=== PATIENT | female | born 1995 | race Caucasian/White ===

== ENCOUNTER → 2025-05-08 | Day surgery (SDC) | payer MEDICAID ==
[~2025-05-08] VITALS: Ht 154.9 cm; Wt 90.3 kg
[~2025-05-08] MED LIST: ACETAMINOPHEN 1000MG/100ML 100 ML IV ONE; BUPIVACAINE HCL/PF 0.5% (5MG/ML) 10ML ONE; DEXAMETHASONE 4MG/ML 1ML VIAL ONE; EPHEDRINE SULFATE 50MG/ML VIAL ONE; FAMOTIDINE 20MG/2ML VIAL IV ONE; FENTANYL CITRATE/PF 50MCG/ML 2ML VIAL IV PRN; FENTANYL CITRATE/PF 50MCG/ML 2ML VIAL ONE; HYDRALAZINE 20MG/ML VIAL IV PRN; HYDROMORPHONE HCL/PF 1MG/ML INJ IV PRN; HYDROMORPHONE HCL/PF 1MG/ML INJ ONE; LABETALOL 5MG/ML 4ML INJ IV PRN; LACTATED RINGERS 1,000 ML IV SCH; LEVO25TA7 PO; LIDOCAINE HCL 1% 20ML VIAL ONE; ONDANSETRON HCL 4MG/2ML INJ ONE; PHENYLEPHRINE HCL 10MG/ML 1ML IV ONE; PROPOFOL 200MG/20ML VIAL IV ONE; ROCURONIUM BROMIDE 10MG/ML VIAL 5ML IV ONE; SKIN ADHESIVE 0.7 GM EA TOP ONE; TIRZ2.5V SQ
[2025-05-08 05:50] LABS: UCG SCREEN NEGATIVE
[2025-05-08 05:51] LABS: UCG KIT EXPIRATION DATE 3-11-27; UCG KIT LOT# 0000982192
[2025-05-08] MEDS: ONDANSETRON HCL 4MG/2ML INJ IV PRN (10:06)
[2025-05-08 10:26] VITALS: BP 102/73; PULSE 85; RESP 16
[2025-05-08] MEDS: ACETAMINOPHEN WITH CODEINE 300/30MG TABLET PO NR (10:26)
== END | disposition home or self-care (01) ==
LOC: OR 05:24
PROVIDERS: ATTEND Surgery
DX: K80.10 Calculus of gallbladder with chronic cholecystitis without obstruction (principal); E03.9 Hypothyroidism, unspecified; Z79.899 Other long term (current) drug therapy; Z98.890 Other specified postprocedural states
CPT/HCPCS: 47562; 81025; 82962; 88304; J3010; J0665; J1100; J3490 ×2; J1308; J2003; J2405; J2371; J2704; J1171; J7030; J0131